=== PATIENT | male | born 1950 | race Caucasian/White ===

== ENCOUNTER 2021-12-20 14:00 | Inpatient (IN) | payer MEDICARE, OTHER ==
[~2021-12-20] VITALS: Ht 188 cm; Wt 77.1 kg
[2021-12-20] MEDS ORDERED: METO25TA20 PO (15:05)
[2021-12-20] MEDS ORDERED: ACET-868 PO ×2 (15:05)
[2021-12-20] MEDS ORDERED: NA P133E RC (15:05)
[2021-12-20] MEDS ORDERED: HONE15GE TP (15:05)
[2021-12-20] MEDS ORDERED: NEOM1OIN15 TP (15:05)
[2021-12-20] MEDS ORDERED: MULT-447 PO (15:05)
[2021-12-20] MEDS ORDERED: MAGN400O6 PO (15:05)
[2021-12-20] MEDS ORDERED: DOCU-141 PO (15:05)
[2021-12-20] MEDS ORDERED: ZINC50TA69 PO (15:05)
[2021-12-20] MEDS ORDERED: ACET-2605 PO (15:05)
[2021-12-20] MEDS ORDERED: POVI3780 TP (15:05)
[2021-12-20] MEDS ORDERED: BISA10SU11 RC (15:05)
[2021-12-20] MEDS ORDERED: SENN-261 PO (15:05)
--- NOTE | 2021-12-20 15:18 | NUR ---
MOVE SHEET SUBMITTED.
--- NOTE | 2021-12-20 15:19 | NUR ---
COVID SWAB DONE AND SENT TO LAB
--- NOTE | 2021-12-20 15:45 | NUR ---
PHLEB TECH AT BEDSIDE FOR BLOOD DRAW.
[2021-12-20 16:14] LABS: BASOPHILS % (AUTO) 0.5 % (0.0-2.0); EOSINOPHILS % (AUTO) 1.2 % (0.0-6.0); HEMATOCRIT 27 % (39-51); HEMOGLOBIN 8.4 g/dL (13.5-17.5); LYMPHOCYTES # (AUTO) 0.7 K/uL (0.8-4.8); LYMPHOCYTES % (AUTO) 10.9 % (20.0-44.0); MEAN CORPUSCULAR HGB CONC 31 g/dl (31.0-36.0); MEAN CORPUSCULAR VOLUME 85 fL (80-96); MONOCYTES # (AUTO) 0.6 K/uL (0.1-1.30); MONOCYTES % (AUTO) 10.6 % (2.0-12.0); NEUTROPHILS # (AUTO) 4.6 K/uL (1.8-8.9); NEUTROPHILS % (AUTO) 76.8 % (43.0-81.0); PLATELET COUNT (AUTO) 348 K/uL (150-450); RED BLOOD CELL COUNT(AUTO) 3.24 MIL/uL (4.5-6.0)
[2021-12-20 16:36] LABS: ALANINE AMINOTRANSFERASE 12 U/L (12-78); ALBUMIN 1.5 g/dL (3.4-5.0); ALKALINE PHOSPHATASE 88 U/L (46-116); ASPARTATE AMINOTRANSFERASE 18 U/L (15-37); BILIRUBIN,DIRECT 0.1 mg/dL (0.0-0.2); BILIRUBIN,TOTAL 0.1 mg/dL (0.2-1.0); CALCIUM, SERUM 8.2 mg/dL (8.5-10.1); CARBON DIOXIDE 37 mmol/L (21-32); CHLORIDE 99 mmol/L (98-107); CREATININE 0.8 mg/dL (0.6-1.3); GLUCOSE 101 mg/dL (74-106); POTASSIUM 4.4 mmol/L (3.5-5.1); SODIUM SERUM 136 mmol/L (136-145); TOTAL PROTEIN, SERUM 8.1 g/dL (6.4-8.2); UREA NITROGEN, BLOOD 13 mg/dL (7-18)
[2021-12-20 17:43] LABS: BAND % (MANUAL) 9 % (0.0-5.0); EOSINOPHILS % (MANUAL) 1 % (0-4); LYMPHOCYTES % (MANUAL) 7 % (16-48); MONOCYTES % (MANUAL) 4 % (0-11.0); NEUTROPHILS % (MANUAL) 79 (42-76)
--- NOTE | 2021-12-20 17:53 | NUR ---
[facility] CALLED MULTIGRAPHER PAGED.
--- NOTE | 2021-12-20 19:33 | NUR ---
BIBPA FOR C/O DISLODGED JUAN MANUEL DRAIN. PT AWAKE AND ALERT X4 BREATHING EVEN AND UNLABORED. ALL V/S WNL.
--- NOTE | 2021-12-20 19:51 | NUR ---
REPORT GIVEN TO BONNIE
--- NOTE | 2021-12-20 20:28 | NUR ---
PATIENT TRANSFERRED TO [facility]
[2021-12-20] MEDS ORDERED: ACETAMINOPHEN 325 MG TABLET PO PRN (20:30)
[2021-12-20] MEDS ORDERED: BACI/NEOM/POLY B OINT PKT 1 UDPKT PACKET TP SCH (20:30)
[2021-12-20] MEDS ORDERED: ONDANSETRON HCL/PF 4 MG/2 ML VIAL IVP PRN (20:30)
--- NOTE | 2021-12-20 20:50 | NUR ---
RN NOTES PT RECIEVED FROM ER VIA IRA IN RM 311-2,AAOX3, ROSANNA NASAL CANULA 2L,NO SIGN SOB/DISTRESS NOTED.NO COPLAINE OF PAIN/DISCOMFORT AT THIS TIME.IV ACCESS ON RD PICCLINE 17G,PATENT AND INTACT.V/S TAKEN AND RECORDED.PT REOREINT THE RM AND VERBALIZED UNDERSTANDING,CALL LIGHT WITHIN REACH,BED LOCKED AND LOW POSITION.CONTINUE TO MONITOR.
[2021-12-20 21:00] VITALS: BP 113/76
[2021-12-20] MEDS: SENNOSIDES 8.6 MG TABLET PO SCH (22:08)
[2021-12-20] MEDS ORDERED: METOPROLOL TARTRATE 25 MG TABLET ONE (22:13)
[2021-12-20] MEDS ORDERED: BACI/NEOM/POLY B OINT PKT 1 UDPKT PACKET ONE (22:13)
[2021-12-20] MEDS: METOPROLOL TARTRATE 25 MG TABLET PO SCH (22:21)
[2021-12-21] MEDS: IV NS 0.9% 1,000 ML IV PRN ×2 (01:35→17:59)
--- NOTE | 2021-12-21 04:25 | NUR ---
RN NOTES PT COMPLAINED OF GEN.BODY PAIN.PRN TYLENOL 650MG WAS GIVEN .PT SAID IS NOT GONNA WORK I NEED MORE STRONGER.I TEXTED DOC.CHELO SAAB WITH A NEW ORDER.NORCO 5-325MG Q4HR PRN.
[2021-12-21] MEDS: HYDROCODONE/APAP 5/325MG TABLET PO PRN (04:36)
--- NOTE | 2021-12-21 06:15 | NUR ---
RN CLOSING NOTES PT IN BED WATCHING TV AOX3.ROSANNA NASAL CANNULA 2L.NO SIGN SOB/DISTRESS NOTED.KEPT PT CLEANED AND COMFORTABLE.ALL DUE MEDS GIVEN ORDERS.ALL NEEDS ATTENDED ROSANNA WELL.IV ACCESS ON RD PICCLINE PATENT AND INTACK.RUNNING 0.9%NS @ 75ML/HR.CALL LIGHT WITHIN REACH.BED LOCKED AND LOW POSITION.ROC ENDORSED TO NEXT SHIFT.
[2021-12-21 06:37] LABS: BASOPHILS % (AUTO) 1.2 % (0.0-2.0); EOSINOPHILS % (AUTO) 3.8 % (0.0-6.0); HEMATOCRIT 24 % (39-51); HEMOGLOBIN 7.6 g/dL (13.5-17.5); LYMPHOCYTES # (AUTO) 0.9 K/uL (0.8-4.8); LYMPHOCYTES % (AUTO) 23.6 % (20.0-44.0); MEAN CORPUSCULAR HGB CONC 31 g/dl (31.0-36.0); MEAN CORPUSCULAR VOLUME 84 fL (80-96); MONOCYTES # (AUTO) 0.6 K/uL (0.1-1.30); MONOCYTES % (AUTO) 15.7 % (2.0-12.0); NEUTROPHILS # (AUTO) 2.1 K/uL (1.8-8.9); NEUTROPHILS % (AUTO) 55.7 % (43.0-81.0); PLATELET COUNT (AUTO) 361 K/uL (150-450); RED BLOOD CELL COUNT(AUTO) 2.92 MIL/uL (4.5-6.0); WHITE BLOOD COUNT (AUTO) 3.7 K/uL (4.3-11.0)
[2021-12-21 06:55] LABS: CALCIUM, SERUM 8.5 mg/dL (8.5-10.1); CARBON DIOXIDE 33 mmol/L (21-32); CHLORIDE 102 mmol/L (98-107); CREATININE 0.7 mg/dL (0.6-1.3); GLUCOSE 93 mg/dL (74-106); MAGNESIUM 1.8 mg/dL (1.8-2.4); PHOSPHORUS 3.5 mg/dL (2.5-4.9); POTASSIUM 3.9 mmol/L (3.5-5.1); SODIUM SERUM 138 mmol/L (136-145); UREA NITROGEN, BLOOD 13 mg/dL (7-18)
--- NOTE | 2021-12-21 07:26 | NUR ---
MS RN OPENING NOTES RECEIVED PT IN BED AWAKE WATCHING TV. A/O X3, ABLE TO MAKE NEEDS KNOWN. ON RA, TOLERATING WELL. NO SOB NOTED. NOT IN ANY SIGN OF RESPIRATORY DISTRESS. IV ACCESS IN RD PICCLINE INTACT AND PATENT. SAFETY MEASURES IN PLACE: BED IN LOWEST AND LOCKED POSITION, SIDE RAILS UP X3, BED ALARM ON, AND CALL LIGHT WITHIN REACH. WILL CONTINUE TO MONITOR PT.
[2021-12-21 08:00] VITALS: BP 96/73
[2021-12-21] MEDS ORDERED: ENOXAPARIN SODIUM 40 MG/0.4 ML DISP.SYRIN SQ SCH (08:00)
--- NOTE | 2021-12-21 08:35 | NUR ---
RN NOTE LOVENOX 4MG SQ NOT ADMINISTERED. PT'S HEMOGLOBIN DROPPED FROM 8.4 TO 7.6. MD AWARE AND TO MONITOR HEMOGLOBIN AT THIS TIME. Addendum: 12/22/21 at 0801 by JOSH RUIZ RN CORRECTION: LOVENOX 40MG SQ NOT ADMINISTERED.
[2021-12-21] MEDS: METOPROLOL TARTRATE 25 MG TABLET PO SCH ×3 (09:00→17:00)
[2021-12-21] MEDS: ZINC SULFATE 220 MG CAPSULE PO SCH (09:40)
[2021-12-21] MEDS: DOCUSATE SODIUM 100 MG CAPSULE PO SCH (09:40)
[2021-12-21] MEDS: MULTIVIT W/MINERALS 1 TAB TABLET PO SCH (09:41)
[2021-12-21] MEDS ORDERED: IOHEXOL-350 100 ML VIAL IV ONE (09:42)
[2021-12-21] MEDS ORDERED: IV NS 0.9% 500 ML IV ONE (09:45)
[2021-12-21] MEDS: NEOMY SULF/BACITRAC ZN/POLY 15 GM TUBE TP SCH ×2 (10:00→17:43)
[2021-12-21 10:24] LABS: EOSINOPHILS % (MANUAL) 4 % (0-4); LYMPHOCYTES % (MANUAL) 24 % (16-48); MONOCYTES % (MANUAL) 10 % (0-11.0); NEUTROPHILS % (MANUAL) 62 (42-76)
--- NOTE | 2021-12-21 11:06 | NUR ---
WOUND CARE CONSULT: PT OFF UNIT AT THIS TIME. REVIEWED CHART, NURSING DOCUMENTATION AND PHOTOS WHICH INDICATE WOUNDS PRESENT ON ADMISSION WELL VERY LONG TOENAILS. DR AVILA AND DR HOFF TO BE CONSULTED FOR SURGICAL AND DPM CONSULT REQUESTS. MD IN AGREEMENT WITH PLAN OF CARE. PT TO BE SEEN FOR SKIN ASSESSMENT PT CONDITION PERMITS.
--- NOTE | 2021-12-21 11:15 | NUR ---
RN NOTE RECEIVED A CALL FROM RADIOLOGIST REPORTING DUPLEX VENOUS RESULT OF POSITIVE DVT BILATERALLY TO BOTH LOWER EXT. DR. JACQUES MADE AWARE AND PER MD, HE WILL INCREASE LOVENOX TO FULL DOSE 80MG SQ AND TO ADMINISTER IT AND TO CONTINUE TO MONITOR HEMOGLOBIN.
[2021-12-21] MEDS: ENOXAPARIN SODIUM 80 MG/0.8 ML DISP.SYRIN SQ SCH ×2 (11:29→21:20)
--- NOTE | 2021-12-21 11:35 | NUR ---
RN NOTE RECEIVED AN ORDER FROM DR. JACQUES OF LOVENOX 80MG SQ EVERY 12HRS. LOVENOX 80MG SQ ADMINISTERED AND THE NEXT DOSE WILL BE AT 2100. NO ACTIVE BLEEDING NOTED. WILL CONTINUE TO MONITOR PT.
[2021-12-21 16:00] VITALS: BP 111/65
[2021-12-21 16:37] LABS: BILIRUBIN,URINE NEGATIVE (NEGATIVE); COLOR,URINE YELLOW (YELLOW); LEUKOCYTE ESTERASE ,URINE NEGATIVE (NEGATIVE); NITRITE, URINE NEGATIVE (NEGATIVE); PROTEIN,URINE NEGATIVE (NEGATIVE); UGLUCOSE NEGATIVE (NEGATIVE); UROBILINOGEN,URINE 0.2 EU/dL (0.2)
--- NOTE | 2021-12-21 18:59 | NUR ---
MS RN CLOSING NOTES PT IN BED AWAKE WATCHING TV. A/O X3, ABLE TO MAKE NEEDS KNOWN. ON RA, TOLERATING WELL. NO SOB NOTED. NOT IN ANY SIGN OF RESPIRATORY DISTRESS. IV ACCESS IN RD PICCLINE INTACT AND PATENT WITH NS INFUSING AT 75ML/HR. ALL NEEDS ATTENDED. KEPT CLEAN AND COMFORTABLE. KEPT BOTH LOWER EXTREMITIES ELEVATED. SAFETY MEASURES IN PLACE: BED IN LOWEST AND LOCKED POSITION, SIDE RAILS UP X3, BED ALARM ON, AND CALL LIGHT WITHIN REACH. WILL ENDORSE TO DIGITAL MARKETING OFFICER NURSE FOR FRANCIS.
--- NOTE | 2021-12-21 19:27 | NUR ---
MS RN OPENING NOTES RECEIVED PT IN BED AWAKE WATCHING TV. A/O X3,ON RM AIR ROSANNA WELL.NO SOB/DISTRESS NOTED.IV ACCESS IN RD PICCLINE INTACT AND PATENT. SAFETY MEASURES IN PLACE: BED IN LOWEST AND LOCKED POSITION, SIDE RAILS UP X3, BED ALARM ON, AND CALL LIGHT WITHIN REACH. WILL CONTINUE TO MONITOR PT.
[2021-12-21 20:00] VITALS: BP 108/85
[2021-12-21] MEDS: SENNOSIDES 8.6 MG TABLET PO SCH (21:19)
--- NOTE | 2021-12-22 06:22 | NUR ---
RN CLOSING NOTES PT IN BED SLEEPING BUT EASY TO AROUSED.NO SIGN SOB/DISTRESS NOTED.KEPT PT CLEANED AND COMFORTABLE.ALL DUE MEDS GIVEN ORDERS.ALL NEEDS ATTENDED ROSANNA WELL.IV ACCESS ON RD PICCLINE PATENT AND INTACK.RUNNING 0.9%NS @ 75ML/HR.CALL LIGHT WITHIN REACH.BED LOCKED AND LOW POSITION.ROC ENDORSED TO NEXT SHIFT.
[2021-12-22 06:34] LABS: BASOPHILS # (AUTO) 0.1 K/uL (0.0-0.2); BASOPHILS % (AUTO) 1.9 % (0.0-2.0); EOSINOPHILS % (AUTO) 5.1 % (0.0-6.0); HEMATOCRIT 24 % (39-51); HEMOGLOBIN 7.6 g/dL (13.5-17.5); LYMPHOCYTES % (AUTO) 22.2 % (20.0-44.0); MEAN CORPUSCULAR HGB CONC 32 g/dl (31.0-36.0); MEAN CORPUSCULAR VOLUME 84 fL (80-96); MONOCYTES # (AUTO) 0.5 K/uL (0.1-1.30); MONOCYTES % (AUTO) 11.5 % (2.0-12.0); NEUTROPHILS # (AUTO) 2.7 K/uL (1.8-8.9); NEUTROPHILS % (AUTO) 59.3 % (43.0-81.0); PLATELET COUNT (AUTO) 395 K/uL (150-450); RED BLOOD CELL COUNT(AUTO) 2.85 MIL/uL (4.5-6.0); WHITE BLOOD COUNT (AUTO) 4.5 K/uL (4.3-11.0)
[2021-12-22 07:10] LABS: CALCIUM, SERUM 8.1 mg/dL (8.5-10.1); CARBON DIOXIDE 32 mmol/L (21-32); CHLORIDE 102 mmol/L (98-107); CREATININE 0.7 mg/dL (0.6-1.3); GLUCOSE 84 mg/dL (74-106); MAGNESIUM 1.9 mg/dL (1.8-2.4); PHOSPHORUS 3.9 mg/dL (2.5-4.9); POTASSIUM 3.8 mmol/L (3.5-5.1); SODIUM SERUM 138 mmol/L (136-145); UREA NITROGEN, BLOOD 11 mg/dL (7-18)
--- NOTE | 2021-12-22 07:30 | NUR ---
RN MS OPENING NOTE PATIENT RECEIVED RESTING IN BED. A/OX3. NO S/SX OF RESPIRATORY DISTRESS OR C/O PAIN AT TIME OF ASSESSMENT. PICC-LINE IV ACCESS TO RD INTACT, PATENT AND FLUSHING WELL. NS RUNNING @ 75ML/HR. SAFETY MEASURES IN PLACE WITH BED IN LOWEST POSITION AND LOCKED. SIDERAIL UP X2. CALL LIGHT WITHIN REACH. WILL CONT TO MONITOR.
[2021-12-22 08:00] VITALS: BP 116/82
[2021-12-22] MEDS: DOCUSATE SODIUM 100 MG CAPSULE PO SCH (08:35)
[2021-12-22] MEDS: MULTIVIT W/MINERALS 1 TAB TABLET PO SCH (08:35)
[2021-12-22] MEDS: ZINC SULFATE 220 MG CAPSULE PO SCH (08:35)
[2021-12-22] MEDS: METOPROLOL TARTRATE 25 MG TABLET PO SCH ×3 (08:36→18:06)
[2021-12-22] MEDS: ENOXAPARIN SODIUM 80 MG/0.8 ML DISP.SYRIN SQ SCH ×2 (08:44→21:52)
[2021-12-22] MEDS: NEOMY SULF/BACITRAC ZN/POLY 15 GM TUBE TP SCH ×2 (09:04→18:06)
[2021-12-22 10:39] LABS: BASOPHILS % (MANUAL) 0 % (0.0-2.0); EOSINOPHILS % (MANUAL) 5 % (0-4); LYMPHOCYTES % (MANUAL) 20 % (16-48); MONOCYTES % (MANUAL) 7 % (0-11.0); NEUTROPHILS % (MANUAL) 68 (42-76)
--- NOTE | 2021-12-22 12:20 | NUR ---
WOUND CARE CONSULT: LIMITED SKIN ASSESSMENT DUE TO PT REFUSAL TO TURN FOR FULL ASSESSMENT OF BACK AND BUTTOCKS. PT PRESENTS WITH OPEN AREA TO ABDOMEN WITH SCANT AMOUNT OF PURULENT DRAINAGE AND RT THIGH WOUND WITH MODERATE AMOUNT OF SEROSANGUINOUS DRAINAGE IN OSTOMY POUCH DEVICE. WOUNDS WERE NOTED TO BE PRESENT ON ADMISSION. SURGICAL TEAM ON CASE. DISCUSSED SKIN PROTECTION WITH NURSING STAFF. MD IN AGREEMENT WITH PLAN OF CARE.
[2021-12-22 16:00] VITALS: BP 104/66
[2021-12-22] MEDS: IV NS 0.9% 1,000 ML IV PRN (18:15)
--- NOTE | 2021-12-22 18:19 | NUR ---
RN CLOSING NOTE PATIENT A/O X3. REMAINS IN BED FOR DURATION OF SHIFT. NO S/SX OF PAIN OR DISTRESS OBSERVED OR REPORTED. WOUND CULTURE TO RIGHT THIGH WOUND COMPLETED AND SENT TO LAB. AWAITING RESULTS. IV PICC LINE ACCESS TO LEFT UPPER ARM REMAINS INTACT AND PATENT. NS RUNNING CONTINUOUSLY @ 75ML/HR. POSITIVE FOR DVT TO BLE. RECEIVED SCHEDULED DOSE OF LOVENOX ON SHIFT. TOLERATED WELL. AWAITING MEDICAL RECORDS FROM RECENT STAY @ [facility]. WILL ENDORSE TO ONCOMING NURSE. SAFETY MEASURES IN PLACE WITH BED LOCKED AND IN LOWEST POSITION. SIDERAIL UP X2, CALL LIGHT WITH IN REACH. WILL CONTINUE TO MONITOR.
[2021-12-22 20:00] VITALS: BP 104/63
--- NOTE | 2021-12-22 20:05 | NUR ---
MS RN OPENING NOTE RECEIVED PATIENT IN BED A/OX3. NO S/S OF APPARENT DISTRESS IN 2LPM OF O2 VIA NC. DENIES PAIN NOR ANY DISCOMFORT AT THIS TIME. IV NS RUNNING @75MLS HR. OSTOMY NOTED IN L. LEG AND DRESSING NOTED IN L. ABDOMINAL WALL, DRY AND INTACT. RE-ORIENTED AND ENCOURAGED WITH THE USE OF CALL LIGHT. SAFETY IN PLACE. WILL CONTINUE WITH PLAN OF CARE FOR PATIENT.
[2021-12-22] MEDS: SENNOSIDES 8.6 MG TABLET PO SCH (21:53)
--- NOTE | 2021-12-23 07:32 | NUR ---
MS RN CLOSING NOTE NEEDS ATTENDED. REPORT GIVEN TO ELIGIO MATA FOR CONTINUITY OF CARE.
--- NOTE | 2021-12-23 07:57 | NUR ---
RN OPENING NOTE PATIENT RECEIVED IN BED, AO X 3, ABLE TO RESPONDS ALL STIMULI. IN NO ACUTE DISTRESS NOTED. RESPIRATORY EVEN AND UNLABORED ON OXYGEN AT 2 Ls VIA NC. SKIN IS WARM TO TOUCH, KEEP CLEAN/DRY. KEPT ELEVATED HOB FOR ENSURE AIRWAY AND ASPIRATION PRECAUTION, ALSO LOWEST POSITION OF THE BED, S/R UP X 3, BED ALARM IS ON AT ALL THE TIMES. ALL SAFETY PRECAUTION APPLIED. CALL LIGHT WITHIN REACH, WILL CONTINUE TO MONITOR.
[2021-12-23 08:00] VITALS: BP 109/68
[2021-12-23 08:10] LABS: EOSINOPHILS % (AUTO) 6.6 % (0.0-6.0); HEMATOCRIT 25 % (39-51); HEMOGLOBIN 7.8 g/dL (13.5-17.5); LYMPHOCYTES # (AUTO) 0.9 K/uL (0.8-4.8); LYMPHOCYTES % (AUTO) 20.5 % (20.0-44.0); MEAN CORPUSCULAR HGB CONC 31 g/dl (31.0-36.0); MEAN CORPUSCULAR VOLUME 86 fL (80-96); MONOCYTES # (AUTO) 0.5 K/uL (0.1-1.30); MONOCYTES % (AUTO) 10.7 % (2.0-12.0); NEUTROPHILS # (AUTO) 2.7 K/uL (1.8-8.9); NEUTROPHILS % (AUTO) 61.2 % (43.0-81.0); PLATELET COUNT (AUTO) 416 K/uL (150-450); RED BLOOD CELL COUNT(AUTO) 2.93 MIL/uL (4.5-6.0); WHITE BLOOD COUNT (AUTO) 4.4 K/uL (4.3-11.0)
[2021-12-23 08:28] LABS: CALCIUM, SERUM 8.1 mg/dL (8.5-10.1); CARBON DIOXIDE 34 mmol/L (21-32); CHLORIDE 104 mmol/L (98-107); CREATININE 0.7 mg/dL (0.6-1.3); GLUCOSE 79 mg/dL (74-106); PHOSPHORUS 3.7 mg/dL (2.5-4.9); POTASSIUM 3.7 mmol/L (3.5-5.1); SODIUM SERUM 141 mmol/L (136-145); UREA NITROGEN, BLOOD 11 mg/dL (7-18)
[2021-12-23] MEDS: DOCUSATE SODIUM 100 MG CAPSULE PO SCH (08:49)
[2021-12-23] MEDS: MULTIVIT W/MINERALS 1 TAB TABLET PO SCH (08:50)
[2021-12-23] MEDS: METOPROLOL TARTRATE 25 MG TABLET PO SCH ×3 (08:50→16:37)
[2021-12-23] MEDS: ZINC SULFATE 220 MG CAPSULE PO SCH (08:50)
[2021-12-23] MEDS: NEOMY SULF/BACITRAC ZN/POLY 15 GM TUBE TP SCH ×2 (08:53→16:43)
[2021-12-23] MEDS: ENOXAPARIN SODIUM 80 MG/0.8 ML DISP.SYRIN SQ SCH ×2 (08:56→21:31)
[2021-12-23] MEDS: IV NS 0.9% 1,000 ML IV PRN ×2 (09:42→22:15)
[2021-12-23 10:16] LABS: BAND % (MANUAL) 2 % (0.0-5.0); EOSINOPHILS % (MANUAL) 7 % (0-4); LYMPHOCYTES % (MANUAL) 25 % (16-48); MONOCYTES % (MANUAL) 10 % (0-11.0); NEUTROPHILS % (MANUAL) 56 (42-76)
[2021-12-23 12:36] LABS: THYROID STIMULATING HORMONE 5.887 uIU/mL (0.358-3.74)
--- NOTE | 2021-12-23 13:45 | NUR ---
PATIENT BP-89/62, HR-93, WILL HOLD METOPROLOL AT THIS TIME.
--- NOTE | 2021-12-23 15:53 | NUR ---
PATIENT REFUSED CT ABDOMEN/PELVIS WITH CONTRAST, INFORMED HAZARDOUS WASTE REMOVER/VANDANA AND DR. BARLOW.
[2021-12-23 16:00] VITALS: BP 124/71
[2021-12-23] MEDS: HYDROCODONE/APAP 5/325MG TABLET PO PRN (16:38)
--- NOTE | 2021-12-23 18:47 | NUR ---
RN CLOSING NOTE PATIENT IN BED RESTING. IN NO ACUTE DISTRESS NOTED. RESPIRATORY EVEN AND UNLABORED ON OXYGEN AT 2Ls VIA NC. SKIN IS WARM TO TOUCH, KEEP CLEAN/DRY. PATIENT HAVE OSTOMY ON RIGHT THIGH TO DRAIN OBSESS. PATIENT REFUSED CT ABDOMEN PELVIS WITH CONTRAST AND PHYSICIANS MADE AWARE. KEPT ELEVATED HOB FOR ENSURE AIRWAY AND ASPIRATION PRECAUTION, BED IN LOWEST POSITION AND LOCK. BED ALARM IS ON AT ALL THE TIMES. ALL SAFETY MEASURED IN PLACED. CALL LIGHT WITHIN REACH, WILL ENDORSED TO NEXT SHIFT.
[2021-12-23 20:00] VITALS: BP 101/71
[2021-12-23] MEDS: SENNOSIDES 8.6 MG TABLET PO SCH (21:31)
--- NOTE | 2021-12-23 23:00 | NUR ---
NEW ORDER 2109 Patient in bed, seen by Keagan Bond with new orders given. Will start on IV Zosyn. Procedure explained to patient, urine catheterized for specimen, patient verbalized understanding.
[2021-12-23] MEDS ORDERED: PIPERACILLIN /TAZOBACTAM 3.375 G VIAL IV ONE (23:22)
[2021-12-23] MEDS: PIPERACILLIN /TAZOBACTAM 3.375 G in IV D5W 50 ML IV SCH (23:47)
[2021-12-24] MEDS ORDERED: Z GUARD REMEDY 4 OZ OINT TP PRN
[2021-12-24] MEDS: HYDROCODONE/APAP 5/325MG TABLET PO PRN ×2 (00:08→09:56)
[2021-12-24] MEDS ORDERED: PIPERACILLIN /TAZOBACTAM 3.375 G VIAL IV ONE (05:15)
[2021-12-24] MEDS: PIPERACILLIN /TAZOBACTAM 3.375 G in IV D5W 50 ML IV SCH (05:36)
--- NOTE | 2021-12-24 06:05 | NUR ---
END OF SHIFT REPORT Patient is A/O x3. Tolerating room air. RD PICC line patent, IVF infusing. On IV abx. Afebrile during the shift. Right thigh drainage purulent, pain managed with [place]. Urine specimen send to lab for cx. Turned and repositioned, wound consult. Awaiting Surgical eval. Will endorse to oncoming RN.
--- NOTE | 2021-12-24 07:00 | NUR ---
MS RN OPENING NOTE PATIENT LAYING IN BED, A/O X 3, ABLE TO MAKE NEEDS KNOWN. TOLERATING WELL ON 2 LPM O2 VIA CANNULA WITH NO S/S RESPIRATORY DISTRESS. NO COMPLAINTS OF PAIN OR DISCOMFORT AT THIS TIME. OSTOMY PRESENT ON RIGHT THIGH ABSCESS DRAINING CLEAR FLUID. SAFETY MEASURES IN PLACE: BED IN LOWEST LOCKED POSITION, HOB ELEVATED FOR ASPIRATION PRECAUTION, SIDE RAILS UP X 2, CALL LIGHT WITHIN REACH. WILL CONTINUE TO MONITOR.
[2021-12-24 07:19] LABS: BASOPHILS # (AUTO) 0.1 K/uL (0.0-0.2); BASOPHILS % (AUTO) 1.2 % (0.0-2.0); EOSINOPHILS % (AUTO) 7.5 % (0.0-6.0); HEMATOCRIT 24 % (39-51); HEMOGLOBIN 7.4 g/dL (13.5-17.5); LYMPHOCYTES # (AUTO) 1.1 K/uL (0.8-4.8); LYMPHOCYTES % (AUTO) 20.5 % (20.0-44.0); MEAN CORPUSCULAR HGB CONC 30 g/dl (31.0-36.0); MEAN CORPUSCULAR VOLUME 86 fL (80-96); MONOCYTES # (AUTO) 0.5 K/uL (0.1-1.30); MONOCYTES % (AUTO) 9.6 % (2.0-12.0); NEUTROPHILS # (AUTO) 3.3 K/uL (1.8-8.9); NEUTROPHILS % (AUTO) 61.2 % (43.0-81.0); PLATELET COUNT (AUTO) 431 K/uL (150-450); RED BLOOD CELL COUNT(AUTO) 2.82 MIL/uL (4.5-6.0); WHITE BLOOD COUNT (AUTO) 5.5 K/uL (4.3-11.0)
[2021-12-24 07:48] LABS: CALCIUM, SERUM 8.3 mg/dL (8.5-10.1); CREATININE 0.7 mg/dL (0.6-1.3); MAGNESIUM 1.8 mg/dL (1.8-2.4); PHOSPHORUS 3.6 mg/dL (2.5-4.9); POTASSIUM 3.7 mmol/L (3.5-5.1)
[2021-12-24 08:00] VITALS: BP 105/55
[2021-12-24 08:07] LABS: IMMUNOGLOBULIN A, SERUM 723 mg/dL (61-437); IMMUNOGLOBULIN G, SERUM 2294 mg/dL (603-1613); IMMUNOGLOBULIN M, SERUM 70 mg/dL (15-143)
[2021-12-24] MEDS: METOPROLOL TARTRATE 25 MG TABLET PO SCH ×3 (09:00→16:33)
[2021-12-24] MEDS: MULTIVIT W/MINERALS 1 TAB TABLET PO SCH (09:42)
[2021-12-24] MEDS: ZINC SULFATE 220 MG CAPSULE PO SCH (09:42)
[2021-12-24] MEDS: DOCUSATE SODIUM 100 MG CAPSULE PO SCH (09:42)
[2021-12-24] MEDS: ENOXAPARIN SODIUM 80 MG/0.8 ML DISP.SYRIN SQ SCH ×2 (09:44→21:00)
[2021-12-24] MEDS: NEOMY SULF/BACITRAC ZN/POLY 15 GM TUBE TP SCH ×2 (09:44→16:34)
[2021-12-24] MEDS ORDERED: LORAZEPAM INJ 2 MG/ML VIAL IV PRN (11:00)
[2021-12-24] MEDS ORDERED: PIPERACILLIN /TAZOBACTAM 3.375 G in IV D5W 50 ML IV SCH (12:00)
[2021-12-24] MEDS: PIPERACILLIN /TAZOBACTAM 3.375 G in IV D5W 100 ML IV SCH ×2 (12:36→21:04)
[2021-12-24] MEDS ORDERED: IV NS 0.9% 250 ML IV ONE (13:35)
[2021-12-24] MEDS ORDERED: IOHEXOL-300 100 ML VIAL IV ONE (13:35)
[2021-12-24] MEDS ORDERED: VANCOMYCIN 1.25 GM in IV D5W 250 ML IV SCH (14:00)
[2021-12-24 16:00] VITALS: BP 101/60
[2021-12-24] MEDS: VANCOMYCIN 1.25 GM in IV D5W 250 ML IV SCH (16:41)
--- NOTE | 2021-12-24 19:00 | NUR ---
MS RN CLOSING NOTE PATIENT LAYING IN BED, A/O X 3, ABLE TO MAKE NEEDS KNOWN. TOLERATING WELL ON 2 LPM O2 VIA CANNULA WITH NO S/S RESPIRATORY DISTRESS. NO COMPLAINTS OF PAIN OR DISCOMFORT AT THIS TIME. OSTOMY PRESENT ON RIGHT THIGH ABSCESS DRAINING CLEAR FLUID INTO COLOSTOMY BAG. SAFETY MEASURES IN PLACE: BED IN LOWEST LOCKED POSITION, HOB ELEVATED FOR ASPIRATION PRECAUTION, SIDE RAILS UP X 2, CALL LIGHT WITHIN REACH. PATIENT REFUSED TURNING DURING SHIFT. ALL NEEDS MET. WILL ENDORSE TO MEDICAL BILLING AND CODING SPECIALIST FOR FRANCIS.
[2021-12-24 20:00] VITALS: BP 97/68
--- NOTE | 2021-12-24 20:12 | NUR ---
MS RN OPENING NOTE PATIENT AWAKE IN BED WATCHING TV, ALERT/ORIENTED X 3, PT ABLE TO MAKE NEEDS KNOWN. PT STABLE ON RA, NO S/S OF DISTRESS OR SOB NOTED, BREATHING EVEN AND UNLABORED. RD PICC LINE INFUSING VANCO @ 125 ML/HR. RIGHT THIGH ABSCESS DRAINING TO COLOSTOMY BAG, EMPTIED 100 ML OF SEROSANGUINEOUS PURULENT DRAINAGE. SAFETY MEASURES IN PLACE: CALL LIGHT WITHIN REACH, SIDE RAILS UP X 2, BED LOCKED IN LOWEST POSITION, BED ALARM ON. WILL CONTINUE TO MONITOR PATIENT
--- NOTE | 2021-12-24 20:54 | NUR ---
MS RN NOTE PATIENT HAS SCHEDULED LOVENOX 80 MG SQ, HOWEVER HGB 7.4, HCT 24, PLATELETS 431. CONTACTED INFORMATION BROKER LUZ MARIA HART TO ADVISE WHETHER TO ADMINISTER OR HOLD, PER LUZ MARIA HART HOLD LOVENOX
[2021-12-24] MEDS: SENNOSIDES 8.6 MG TABLET PO SCH (21:04)
--- NOTE | 2021-12-25 04:30 | NUR ---
MS RN NOTE IV VANCO AND ZOSYN BOTH SCHEDULED FOR 5 AM, HOWEVER VANCO INFUSES FOR 2 HOURS AND ZOSYN FOR 4 HOURS. CALLED PHARMACY TO DETERMINE IF COMPATIBLE TO RUN AT THE SAME TIME, PER PHARMACIST NOT COMPATIBLE. PER PHARMACIST WILL CHANGE DOSE TIME FOR ZOSYN
[2021-12-25] MEDS: VANCOMYCIN 1.25 GM in IV D5W 250 ML IV SCH ×2 (04:41→17:15)
[2021-12-25 06:19] LABS: BASOPHILS # (AUTO) 0.1 K/uL (0.0-0.2); BASOPHILS % (AUTO) 1.1 % (0.0-2.0); EOSINOPHILS % (AUTO) 6.6 % (0.0-6.0); HEMATOCRIT 23 % (39-51); LYMPHOCYTES # (AUTO) 0.7 K/uL (0.8-4.8); LYMPHOCYTES % (AUTO) 12.2 % (20.0-44.0); MEAN CORPUSCULAR HGB CONC 31 g/dl (31.0-36.0); MEAN CORPUSCULAR VOLUME 88 fL (80-96); MONOCYTES # (AUTO) 0.5 K/uL (0.1-1.30); MONOCYTES % (AUTO) 8.5 % (2.0-12.0); NEUTROPHILS # (AUTO) 4.1 K/uL (1.8-8.9); NEUTROPHILS % (AUTO) 71.6 % (43.0-81.0); PLATELET COUNT (AUTO) 407 K/uL (150-450); WHITE BLOOD COUNT (AUTO) 5.8 K/uL (4.3-11.0)
--- NOTE | 2021-12-25 06:54 | NUR ---
MS RN CLOSING NOTE PATIENT SLEEPING, ALERT/ORIENTED X 3 THROUGHOUT SHIFT, PT ABLE TO MAKE NEEDS KNOWN. PT STABLE ON RA, NO S/S OF DISTRESS OR SOB NOTED, BREATHING EVEN AND UNLABORED. RD PICC LINE INFUSING NS @ 75 ML/HR. RIGHT THIGH ABSCESS DRAINING TO COLOSTOMY BAG, EMPTIED 50 ML OF SEROSANGUINEOUS DRAINAGE. NO SIGNIFICANT CHANGES THROUGHOUT SHIFT. MEDICATIONS GIVEN ORDERED, PT NEEDS MET THROUGHOUT SHIFT. SAFETY MEASURES IN PLACE: CALL LIGHT WITHIN REACH, SIDE RAILS UP X 2, BED LOCKED IN LOWEST POSITION, BED ALARM ON. WILL ENDORSE TO DAYSHIFT NURSE FOR CONTINUATION OF CARE
[2021-12-25] MEDS ORDERED: PIPERACILLIN /TAZOBACTAM 3.375 G in IV D5W 100 ML IV SCH (07:00)
--- NOTE | 2021-12-25 07:00 | NUR ---
MS RN OPENING NOTES PATIENT LAYING IN BED, A/O X 3, ABLE TO MAKE NEEDS KNOWN. TOLERATING WELL ON ROOM AIR WITH NO S/S RESPIRATORY DISTRESS. NO COMPLAINTS OF PAIN OR DISCOMFORT AT THIS TIME. R THIGH ABSCESS DRAINING TO COLOSTOMY BAG. RD PICC LINE CLEAN, INTACT, AND INFUSING NS @ 75 ML/HR. SAFETY MEASURES IN PLACE: BED IN LOWEST LOCKED POSITION, SIDE RAILS UP X 2, CALL LIGHT WITHIN REACH. WILL CONTINUE TO MONITOR.
[2021-12-25 07:03] LABS: CALCIUM, SERUM 8.2 mg/dL (8.5-10.1); CREATININE 0.7 mg/dL (0.6-1.3); MAGNESIUM 1.8 mg/dL (1.8-2.4); PHOSPHORUS 3.4 mg/dL (2.5-4.9); POTASSIUM 3.6 mmol/L (3.5-5.1); PROSTATE SPECIFIC ANTIGEN SCR 0.6 ng/mL (0.00-4.00)
[2021-12-25 08:06] LABS: *SPE A/G RATIO 0.4 (0.7-1.7); *SPE ALPHA-1-GLOBULIN 0.3 g/dL (0.0-0.4); *SPE ALPHA-2-GLOBULIN 0.8 g/dL (0.4-1.0); *SPE BETA GLOBULIN 0.9 g/dL (0.7-1.3); *SPE M-SPIKE Not Observed g/dL (Not Observed)
[2021-12-25 08:21] VITALS: BP 103/67
[2021-12-25] MEDS: ENOXAPARIN SODIUM 80 MG/0.8 ML DISP.SYRIN SQ SCH ×2 (09:00→21:15)
[2021-12-25] MEDS: METOPROLOL TARTRATE 25 MG TABLET PO SCH ×4 (09:00→17:16)
[2021-12-25] MEDS: DOCUSATE SODIUM 100 MG CAPSULE PO SCH (09:01)
[2021-12-25] MEDS: ZINC SULFATE 220 MG CAPSULE PO SCH (09:01)
[2021-12-25] MEDS: MULTIVIT W/MINERALS 1 TAB TABLET PO SCH (09:01)
[2021-12-25] MEDS: NEOMY SULF/BACITRAC ZN/POLY 15 GM TUBE TP SCH ×2 (09:02→17:16)
[2021-12-25] MEDS: HYDROCODONE/APAP 5/325MG TABLET PO PRN ×2 (09:09→19:34)
--- NOTE | 2021-12-25 09:17 | NUR ---
WOUND CARE CONSULT: PT SEEN FOR SACRAL WOUND WHICH WAS PRESENT ON ADMISSION. PT WAS PREVIOUSLY UNCOOPERATIVE WITH TURNING FOR SKIN ASSESSMENT. STAGE 3 SACRAL WOUND NOTED WITH SCARRING TO PERIWOUND EDGES. RECOMMENDATIONS MADE FOR SKIN PROTECTION AND DISCUSSED WITH NURSING STAFF AND SURGICAL P.A. MD IN AGREEMENT WITH PLAN OF CARE. MD IN AGREEMENT WITH PLAN OF CARE.
[2021-12-25 09:41] LABS: EOSINOPHILS % (MANUAL) 7 % (0-4); LYMPHOCYTES % (MANUAL) 12 % (16-48); MONOCYTES % (MANUAL) 8 % (0-11.0); NEUTROPHILS % (MANUAL) 73 (42-76)
[2021-12-25] MEDS ORDERED: HYDROGEL DRESSING 90 GM TUBE TP PRN (10:00)
[2021-12-25] MEDS: HYDROGEL DRESSING 90 GM TUBE TP SCH (11:05)
[2021-12-25 16:42] VITALS: BP 112/68
--- NOTE | 2021-12-25 19:29 | NUR ---
MS RN OPENING NOTES: [id number] PATIENT AWAKE IN BED, BED IN LOW POSITION CALL LIGHTS WITHIN REACH, NO COMPLAIN OF PAIN AND DISCOMFORT AT THIS TIME ON ROOM AIR SATURATING WELL, WITH IV LINE AT HDZ PICC LINE WITH ONGOING NSS@75ML/HR INFUSING WELL, PATIENT WITH RIGHT THIGH COLOSTOMY DRAINAGE, PATIENT KEPT CLEAN AND DRY ALL NEEDS MET WILL CONTINUE TO MONITOR.
[2021-12-25 20:00] VITALS: BP 94/63
[2021-12-25 20:29] VITALS: BP 94/63
[2021-12-25] MEDS: SENNOSIDES 8.6 MG TABLET PO SCH (21:14)
[2021-12-25] MEDS: IV NS 0.9% 1,000 ML IV PRN (21:14)
[2021-12-26] MEDS: VANCOMYCIN 1.25 GM in IV D5W 250 ML IV SCH (05:00)
--- NOTE | 2021-12-26 05:41 | NUR ---
RN NOTES: VANCOMYCIN 1.25MG NOT GIVEN; VANCOMYCIN TROUGH LEVEL-30
--- NOTE | 2021-12-26 06:45 | NUR ---
RN NOTES: PATIENT REFUSED TO BE CHANGE AND CHANGE OF DRESSING AND TO BE CLEAN HE SAID HE WANTED TO DO IT AFTER BREAKFAST, TOLD HIM THAT THE SHEETS IS WET AND NEEDS TO BE CHANGED BUT PATIENT KEPT ON REFUSING, PATIENT ALLOW US TO DRAIN THE COLOSTOMY DRAINAGE AT RT THIGH WITH 50CC OUTPUT,
[2021-12-26 07:14] LABS: BASOPHILS # (AUTO) 0.1 K/uL (0.0-0.2); BASOPHILS % (AUTO) 1.5 % (0.0-2.0); EOSINOPHILS % (AUTO) 8.4 % (0.0-6.0); HEMATOCRIT 23 % (39-51); HEMOGLOBIN 7.1 g/dL (13.5-17.5); LYMPHOCYTES # (AUTO) 0.9 K/uL (0.8-4.8); LYMPHOCYTES % (AUTO) 18.5 % (20.0-44.0); MEAN CORPUSCULAR HGB CONC 31 g/dl (31.0-36.0); MEAN CORPUSCULAR VOLUME 86 fL (80-96); MONOCYTES # (AUTO) 0.6 K/uL (0.1-1.30); MONOCYTES % (AUTO) 10.8 % (2.0-12.0); NEUTROPHILS # (AUTO) 3.1 K/uL (1.8-8.9); NEUTROPHILS % (AUTO) 60.8 % (43.0-81.0); PLATELET COUNT (AUTO) 430 K/uL (150-450); WHITE BLOOD COUNT (AUTO) 5.1 K/uL (4.3-11.0)
--- NOTE | 2021-12-26 07:30 | NUR ---
ms rn received on bed, awake,alert,oriented x4,not in any form of distress, respirations even and unlabored,no sob noted, lungs are diminished,abdomen soft,positive bowel sounds,denies pain at this time, all needs attended.
[2021-12-26 07:34] LABS: CREATININE 0.6 mg/dL (0.6-1.3); MAGNESIUM 1.8 mg/dL (1.8-2.4); PHOSPHORUS 3.4 mg/dL (2.5-4.9); POTASSIUM 3.5 mmol/L (3.5-5.1)
[2021-12-26 08:02] VITALS: BP 114/55
[2021-12-26] MEDS: MULTIVIT W/MINERALS 1 TAB TABLET PO SCH (08:59)
[2021-12-26] MEDS: DOCUSATE SODIUM 100 MG CAPSULE PO SCH (08:59)
[2021-12-26] MEDS: ZINC SULFATE 220 MG CAPSULE PO SCH (08:59)
[2021-12-26] MEDS: ENOXAPARIN SODIUM 80 MG/0.8 ML DISP.SYRIN SQ SCH ×2 (09:00→21:40)
[2021-12-26] MEDS: HYDROGEL DRESSING 90 GM TUBE TP SCH (09:00)
[2021-12-26] MEDS: METOPROLOL TARTRATE 25 MG TABLET PO SCH ×3 (09:00→17:29)
--- NOTE | 2021-12-26 09:00 | NUR ---
ms frias breakfast served,due meds given,tolerated well.
[2021-12-26] MEDS: HYDROCODONE/APAP 5/325MG TABLET PO PRN ×2 (09:17→18:47)
--- NOTE | 2021-12-26 15:00 | NUR ---
ms rn on bed, no distress noted.
[2021-12-26 16:00] VITALS: BP 102/59
[2021-12-26 16:02] VITALS: BP 102/59
[2021-12-26] MEDS: NEOMY SULF/BACITRAC ZN/POLY 15 GM TUBE TP SCH ×2 (16:11→17:29)
[2021-12-26] MEDS ORDERED: VANCOMYCIN HCL 0.75 GM in IV D5W 250 ML IV SCH (18:00)
[2021-12-26] MEDS: IV NS 0.9% 1,000 ML IV PRN (18:51)
--- NOTE | 2021-12-26 19:00 | NUR ---
ms rn on bed, no distress noted,all needs attended.
--- NOTE | 2021-12-26 19:15 | NUR ---
MS RN OPENING NOTES: RECEIVED PATIENT IN BED, AWAKE, A/O X4. NO S/S OF DISTRESS NOTED. NO COMPLAIN OF PAIN. CALL LIGHT WITHIN REACH. BED ALARM ON. BED IN LOWEST AND LOCKED POSITION. WITH URINAL AT THE BEDSIDE. WITH RIGHT THIGH COLOSTOMY BAG INTACT, ON THE WOUND WITH SEROSANGUINOUS OUTPUT. WITH MID ABDOMINAL SCAR, DRIED, NO DRAINAGE NOTED.
[2021-12-26 20:00] VITALS: BP 91/55
[2021-12-26] MEDS: VANCOMYCIN HCL 0.75 GM in IV D5W 250 ML IV SCH (21:38)
[2021-12-26] MEDS: SENNOSIDES 8.6 MG TABLET PO SCH (21:39)
[2021-12-27] MEDS: IV NS 0.9% 1,000 ML IV PRN ×2 (01:30→16:40)
[2021-12-27] MEDS: HYDROCODONE/APAP 5/325MG TABLET PO PRN ×2 (06:19→20:37)
--- NOTE | 2021-12-27 07:07 | NUR ---
MS RN OPENING NOTES RECEIVED PATIENT SLEEPING IN BED, ON ROOM AIR NO S/S OF RESPIRATORY DISTRESS OR DISCOMFORT. PATIENT IS A/O x3-4. IV ACCESS RD PICC RUNNING NS 75 ML/HR. INTACT AND PATENT. NO S/S OF CARDIAC DISTRESS OR DISCOMFORT. SKIN ISSUES: SACRAL WOUND DRESSING IN PLACE, NO S/S OF DRAINAGE OR INFECTION. USES URINAL AND BED FAGAN. SAFETY MEASURES IN PLACE: BED IN LOWEST POSITION AND LOCKED, SIDE RAILS UP x2, CALL LIGHT WITHIN REACH, BED ALARM ON. WILL CONTINUE TO MONITOR.
[2021-12-27 08:00] VITALS: BP 98/71
[2021-12-27 08:17] LABS: BASOPHILS % (AUTO) 0.8 % (0.0-2.0); EOSINOPHILS % (AUTO) 8.5 % (0.0-6.0); HEMATOCRIT 25 % (39-51); HEMOGLOBIN 7.8 g/dL (13.5-17.5); LYMPHOCYTES # (AUTO) 0.8 K/uL (0.8-4.8); LYMPHOCYTES % (AUTO) 17.7 % (20.0-44.0); MEAN CORPUSCULAR HGB CONC 31 g/dl (31.0-36.0); MEAN CORPUSCULAR VOLUME 90 fL (80-96); MONOCYTES # (AUTO) 0.5 K/uL (0.1-1.30); NEUTROPHILS # (AUTO) 2.9 K/uL (1.8-8.9); PLATELET COUNT (AUTO) 415 K/uL (150-450); RED BLOOD CELL COUNT(AUTO) 2.82 MIL/uL (4.5-6.0); WHITE BLOOD COUNT (AUTO) 4.7 K/uL (4.3-11.0)
[2021-12-27] MEDS: ENOXAPARIN SODIUM 80 MG/0.8 ML DISP.SYRIN SQ SCH ×2 (08:52→20:38)
[2021-12-27] MEDS: VANCOMYCIN HCL 0.75 GM in IV D5W 250 ML IV SCH ×2 (08:53→20:36)
[2021-12-27] MEDS: METOPROLOL TARTRATE 25 MG TABLET PO SCH ×3 (08:53→16:38)
[2021-12-27] MEDS: DOCUSATE SODIUM 100 MG CAPSULE PO SCH (08:53)
[2021-12-27] MEDS: MULTIVIT W/MINERALS 1 TAB TABLET PO SCH (08:53)
[2021-12-27] MEDS: ZINC SULFATE 220 MG CAPSULE PO SCH (08:53)
[2021-12-27 09:06] LABS: CALCIUM, SERUM 8.5 mg/dL (8.5-10.1); CREATININE 0.6 mg/dL (0.6-1.3); MAGNESIUM 1.9 mg/dL (1.8-2.4); PHOSPHORUS 3.2 mg/dL (2.5-4.9); POTASSIUM 3.9 mmol/L (3.5-5.1)
[2021-12-27] MEDS: HYDROGEL DRESSING 90 GM TUBE TP SCH (09:09)
[2021-12-27] MEDS: NEOMY SULF/BACITRAC ZN/POLY 15 GM TUBE TP SCH ×2 (09:11→16:38)
--- NOTE | 2021-12-27 18:39 | NUR ---
MS RN CLOSING NOTES PATIENT IN BED RESTING, STABLE ON ROOM AIR NO S/S OF RESPIRATORY DISTRESS OR DISCOMFORT. PATIENT IS A/O x3-4. IV ACCESS RD PICC RUNNING NS 75 ML/HR. INTACT AND PATENT. NO S/S OF CARDIAC DISTRESS OR DISCOMFORT. SKIN ISSUES: SACRAL WOUND DRESSING IN PLACE, NO S/S OF DRAINAGE OR INFECTION. USES URINAL AND BED FAGAN. ALL PRESCRIBED MEDICATION ADMINISTERED. SAFETY MEASURES MAINTAINED: BED IN LOWEST POSITION AND LOCKED, SIDE RAILS UP x2, CALL LIGHT WITHIN REACH, BED ALARM ON, HOB ELEVATED. WILL ENDORSE TO NEXT SHIFT ANY FRANCIS.
--- NOTE | 2021-12-27 19:40 | NUR ---
MS RN OPENING NOTES RECEIVED PATIENT SLEEPING IN BED,ROSANNA WELL ON ROOM AIR,NO SIGN SOB/DISTRESS NOTED IV ACCESS RD PICC RUNNING NS 75 ML/HR. INTACT AND PATENT.SAFETY MEASURES IN PLACE: BED IN LOWEST POSITION AND LOCKED, SIDE RAILS UP x2, CALL LIGHT WITHIN REACH,WILL CONTINUE TO MONITOR.
[2021-12-27 20:31] VITALS: BP 96/56
--- NOTE | 2021-12-27 20:37 | NUR ---
RN NOTES. PT COMPLAINED OF PAIN BLL 710.PRN NORCO 5/325 WAS GIVEN.
[2021-12-27] MEDS: SENNOSIDES 8.6 MG TABLET PO SCH (21:19)
[2021-12-28] VITALS (8 sets, daily range): BP systolic 105–125; BP diastolic 69–90
[2021-12-28] MEDS ORDERED: MIDAZOLAM HCL 2 MG/2ML VIAL ONE (06:44)
[2021-12-28] MEDS ORDERED: FENTANYL PF 250MCG/5ML AMPUL ONE (06:44)
[2021-12-28] MEDS ORDERED: FAMOTIDINE/PF INJ 20 MG/2 ML VIAL IV ONE (06:45)
[2021-12-28] MEDS ORDERED: HYDROMORPHONE INJ 2 MG/ML DISP.SYRIN ONE (06:45)
[2021-12-28 06:48] LABS: BASOPHILS % (AUTO) 0.3 % (0.0-2.0); EOSINOPHILS % (AUTO) 7.4 % (0.0-6.0); HEMATOCRIT 24 % (39-51); HEMOGLOBIN 7.7 g/dL (13.5-17.5); LYMPHOCYTES # (AUTO) 1.2 K/uL (0.8-4.8); LYMPHOCYTES % (AUTO) 24.2 % (20.0-44.0); MEAN CORPUSCULAR HGB CONC 32 g/dl (31.0-36.0); MEAN CORPUSCULAR VOLUME 86 fL (80-96); MONOCYTES # (AUTO) 0.5 K/uL (0.1-1.30); MONOCYTES % (AUTO) 9.6 % (2.0-12.0); NEUTROPHILS # (AUTO) 2.9 K/uL (1.8-8.9); NEUTROPHILS % (AUTO) 58.5 % (43.0-81.0); PLATELET COUNT (AUTO) 386 K/uL (150-450); RED BLOOD CELL COUNT(AUTO) 2.83 MIL/uL (4.5-6.0)
[2021-12-28] MEDS ORDERED: ANESTHESIA TRAY IN PYXIS 1 EA TRAY MC ONE (06:54)
--- NOTE | 2021-12-28 06:54 | NUR ---
MS RN CLOSING NOTES PATIENT IN BED RESTING, STABLE ON ROOM AIR NO S/S OF RESPIRATORY DISTRESS OR DISCOMFORT. PATIENT IS A/O x3-4. IV ACCESS RD PICC RUNNING NS 75 ML/HR. INTACT AND PATENT.ALL DUE MEDS GIVEN ORDER. SAFETY MEASURES MAINTAINED: BED IN LOWEST POSITION AND LOCKED, SIDE RAILS UP x2, CALL LIGHT WITHIN REACH, WILL ENDORSE TO NEXT SHIFT ANY FRANCIS.
[2021-12-28] MEDS ORDERED: LIDOCAINE 1% INJ 50 ML MDV IJ ONE (06:55)
[2021-12-28 07:02] LABS: CALCIUM, SERUM 8.5 mg/dL (8.5-10.1); CREATININE 0.8 mg/dL (0.6-1.3); MAGNESIUM 1.9 mg/dL (1.8-2.4); PHOSPHORUS 3.3 mg/dL (2.5-4.9); POTASSIUM 4.1 mmol/L (3.5-5.1)
--- NOTE | 2021-12-28 07:07 | NUR ---
RN OPENING NOTES PATIENT LEFT FOR SURGERY @0654, UNABLE TO SEE PATIENT BEFORE BEING TRANSPORTED FOR SURGERY.
[2021-12-28] MEDS ORDERED: BUPIVACAINE MPF 0.5% W/EPI INJ 30 ML VIAL ONE (07:38)
--- NOTE | 2021-12-28 08:47 | NUR ---
CARTON STAMPER NOTES PT PAR SCORE =10
--- NOTE | 2021-12-28 08:47 | NUR ---
MEDICAL INTERN NOTES PT RECEIVED IN PACU, S/P I&D OF INFECTED RIGHT THIGH WOUND, PT IS DRAWZY , FOLLOWS SIMPLE COMMAND, ABLE TO TAKE DEEP BREATH , ON FACE MASK AT 10 L , O2 SAT WNL, DRESSING TO RIGHT THIGH IS CLEAN , DRY AND INTACT, VSS STABLE. SKIN WARM TO TOUCH, NO COMPLICATION NOTED AT THIS TIME, CONTINUE TO MONITOR.
[2021-12-28] MEDS: ENOXAPARIN SODIUM 80 MG/0.8 ML DISP.SYRIN SQ SCH ×2 (09:00→21:14)
--- NOTE | 2021-12-28 09:00 | NUR ---
RN NOTES PT IS ALERT, STATED WANT TO GO BACK TO THE FLOOR, DRESSING TO RIGHT THIGH , CLEAN,DRY AND INTACT, SENSATION TO UPPER AND LOWER EXTREMITIES , CAPILLARY REFILL , COLOR , RADIAL PULSES, BRACHIAL PULSES WNL, NO DISTESS NOTED, VSS STABLE , CONTINUE TO MONITOR.
--- NOTE | 2021-12-28 09:15 | NUR ---
RN NOTES PT A/Ox3-4, IV SITE TO L UPPER ARM CLEAN, DRY AND INTACT, VSS STABLE, NO DISTESS NOTED, CONTINUE TO MONITOR.
--- NOTE | 2021-12-28 09:45 | NUR ---
LOBBY ATTENDANT NOTES VSS STABLE ,DRESSING TO RIGHT THIGH CLEAN, DRY AND INTACT, NO COMPLICATION NOTED, PT A/Ox4, STATED THAT HE IS HUNGARY AND WANTS TO EAT , PT BACK TO ROOM 311 , IN STABLE CONDITION, REPORT GIVEN TO JOSE DEL VALLE FOR CONTINUITY OF CARE
--- NOTE | 2021-12-28 09:45 | NUR ---
PIECER NOTE PT'S PAR =14
--- NOTE | 2021-12-28 09:58 | NUR ---
RN NOTES PATIENT RETURNED TO UNIT ACCOMPANIED BY THREE OR STAFF. PATIENT ALERT AND ORIENTED, ON 2 L OF O2 NO S/S OF RESPIRATORY DISTRESS. V/S STABLE, DRESSING ON R THIGH IN PLACE AND NO DRAINAGE OR BLEEDING NOTED. WILL CONTINUE TO MONITOR.
[2021-12-28] MEDS: ZINC SULFATE 220 MG CAPSULE PO SCH (10:23)
[2021-12-28] MEDS: DOCUSATE SODIUM 100 MG CAPSULE PO SCH (10:23)
[2021-12-28] MEDS: MULTIVIT W/MINERALS 1 TAB TABLET PO SCH (10:23)
[2021-12-28] MEDS: METOPROLOL TARTRATE 25 MG TABLET PO SCH ×3 (10:23→17:00)
[2021-12-28] MEDS: NEOMY SULF/BACITRAC ZN/POLY 15 GM TUBE TP SCH ×2 (10:24→17:39)
[2021-12-28] MEDS: HYDROCODONE/APAP 5/325MG TABLET PO PRN (10:24)
[2021-12-28] MEDS: HYDROGEL DRESSING 90 GM TUBE TP SCH (10:24)
[2021-12-28] MEDS: IV NS 0.9% 1,000 ML IV PRN (14:03)
[2021-12-28] MEDS: SENNOSIDES 8.6 MG TABLET PO SCH (21:15)
[2021-12-29] MEDS: IV NS 0.9% 1,000 ML IV PRN ×2 (03:36→18:01)
--- NOTE | 2021-12-29 06:15 | NUR ---
MS RN CLOSING NOTES PATIENT IN BED AAOX3 ON ROOM AIR NO SIGN SOB/DISTRESS NOTED. IV ACCESS RD PICC RUNNING NS 75 ML/HR. INTACT AND PATENT.DUE MEDS GIVEN ORDER.ALL NEEDS ATTENDED,KEPT PT CLEANED AND DRY AT ALL TIME SAFETY MEASURES MAINTAINED: BED IN LOWEST POSITION AND LOCKED, SIDE RAILS UP x2, CALL LIGHT WITHIN REACH, WILL ENDORSE TO NEXT SHIFT.
[2021-12-29 06:45] LABS: BASOPHILS # (AUTO) 0.1 K/uL (0.0-0.2); BASOPHILS % (AUTO) 0.7 % (0.0-2.0); EOSINOPHILS % (AUTO) 3.9 % (0.0-6.0); HEMATOCRIT 24 % (39-51); HEMOGLOBIN 7.6 g/dL (13.5-17.5); LYMPHOCYTES % (AUTO) 15.3 % (20.0-44.0); MEAN CORPUSCULAR HGB CONC 32 g/dl (31.0-36.0); MEAN CORPUSCULAR VOLUME 87 fL (80-96); MONOCYTES # (AUTO) 0.6 K/uL (0.1-1.30); MONOCYTES % (AUTO) 8.7 % (2.0-12.0); NEUTROPHILS # (AUTO) 4.8 K/uL (1.8-8.9); NEUTROPHILS % (AUTO) 71.4 % (43.0-81.0); PLATELET COUNT (AUTO) 392 K/uL (150-450); RED BLOOD CELL COUNT(AUTO) 2.79 MIL/uL (4.5-6.0); WHITE BLOOD COUNT (AUTO) 6.7 K/uL (4.3-11.0)
[2021-12-29 07:00] LABS: CALCIUM, SERUM 8.1 mg/dL (8.5-10.1); CREATININE 0.9 mg/dL (0.6-1.3); MAGNESIUM 1.9 mg/dL (1.8-2.4); PHOSPHORUS 2.8 mg/dL (2.5-4.9); POTASSIUM 3.8 mmol/L (3.5-5.1)
--- NOTE | 2021-12-29 07:25 | NUR ---
MS RN OPENING NOTES RECEIVED PATIENT AWAKE IN BED. A/O X3. BREATHING EVEN AND UNLABORED ON 2L OF O2 VIA NC. DENIES PAIN AT THIS TIME. RD PICC RUNNING NS @ 75 ML/HR WITH NO S/SX OF INFILTRATION NOTED. RIGHT THIGH DRESSING INTACT WITH MINIMAL DRAINAGE NOTED. TO BE SEEN BY WOUND NURSE OR DR BARLOW FOR DRESSING CHANGE. SAFETY MEASURES IN PLACE. WILL CONTINUE TO MONITOR
[2021-12-29] MEDS: ZINC SULFATE 220 MG CAPSULE PO SCH (09:00)
[2021-12-29] MEDS: METOPROLOL TARTRATE 25 MG TABLET PO SCH ×3 (09:00→16:13)
[2021-12-29] MEDS: DOCUSATE SODIUM 100 MG CAPSULE PO SCH (09:00)
[2021-12-29] MEDS: ENOXAPARIN SODIUM 80 MG/0.8 ML DISP.SYRIN SQ SCH ×2 (09:01→20:47)
[2021-12-29] MEDS: MULTIVIT W/MINERALS 1 TAB TABLET PO SCH (09:01)
[2021-12-29] MEDS: NEOMY SULF/BACITRAC ZN/POLY 15 GM TUBE TP SCH ×2 (09:02→16:19)
[2021-12-29] MEDS: HYDROGEL DRESSING 90 GM TUBE TP SCH (09:02)
[2021-12-29] MEDS: HYDROCODONE/APAP 5/325MG TABLET PO PRN ×2 (09:15→21:03)
[2021-12-29] MEDS: VANCOMYCIN HCL 0.75 GM in IV D5W 250 ML IV SCH (09:30)
--- NOTE | 2021-12-29 10:34 | NUR ---
WOUND CARE CONSULT: PT SEEN FOR RT THIGH SURGICAL DRESSING WHICH IS DRY AND INTACT. PT SEEN WITH PLASTIC SURGERY P.A. DEFER TO SURGICAL TEAMS CURRENTLY ON CASE.
--- NOTE | 2021-12-29 18:49 | NUR ---
MS RN CLOSING NOTES PATIENT RESTING IN BED. ON 2L OF O2 VIA NC, TOLERATING WELL WITH BREATHING EVEN AND UNLABORED. RD PICC RUNNING NS @ 75 ML/HR, TOLERATING WELL. SEEN BY WOUND CARE NURSE AND PLASTIC SURGERY N.P TODAY FOR WOUND CONSULTATION. F/U NEEDED TOMORROW FOR DRESSING CHANGE. ALL MEDICATIONS GIVEN AND NEEDS MET. SAFETY MEASURES IN PLACE. WILL ENDORSE TO THE SPORTS COORDINATOR NURSE FOR FRANCIS
--- NOTE | 2021-12-29 19:00 | NUR ---
RN opening notes Pt is sitting in bed comfortably watching TV. Pt is alert and orientedX4. On 2 L NC. No SOB. No S/S of distress noted. RD PICC is clean, intact and infuising well Ns@ 75 ml/hr. Dressing on R thigh is clean, intact and dry. Wound care consult tomorrow per am nurse. Safety precautions is maintained. Bed at low position, brakes locked, side rails upX3, hob elevated, bed alarm is on and call light is within reach. Will continue to monitor.
[2021-12-29 20:00] VITALS: BP 96/69
--- NOTE | 2021-12-29 21:03 | NUR ---
RN notes Pt is complaining of pain on R thigh and requesting pain med. administered norco5/1 tab/po/prn as ordered for pain. VS is stable. Will continue to monitor.
[2021-12-29] MEDS: SENNOSIDES 8.6 MG TABLET PO SCH (21:05)
--- NOTE | 2021-12-29 21:05 | NUR ---
RN notes Held sennokot. Pt refused sennokot. Pt stated " I poop two times. Will continue to monitor.
[2021-12-30] VITALS: BP 114/59
--- NOTE | 2021-12-30 04:00 | NUR ---
RN notes Pt refuses wound care (sacrum). explained risks and benefits. Pt keep refusing. Offered several times. Pt states "after my breakfast." will continue to monitor.
--- NOTE | 2021-12-30 05:00 | NUR ---
Rn notes Pt refuses to be clean and checked. explained risks and benefits. Pt states "I don't want anything right now. I will let you know when I pee." Primary nurse and IMPREGNATING TANK OPERATOR offered several times.
--- NOTE | 2021-12-30 06:32 | NUR ---
RN closing notes Pt is resting in bed comfortably. Pt is alert and orientedX4. On 2 L NC. No SOB. No S/S of distress noted. RD PICC is clean, intact and infuising well Ns@ 75 ml/hr. VS is stable. Dressing on R thigh is clean, intact and dry. Safety precautions is maintained. Bed at low position, brakes locked, side rails upX3, hob elevated, bed alarm is on and call light is within reach. Will endorse to am nurse for FRANCIS.
[2021-12-30 06:45] LABS: BASOPHILS % (AUTO) 0.7 % (0.0-2.0); EOSINOPHILS % (AUTO) 5.3 % (0.0-6.0); HEMATOCRIT 23 % (39-51); HEMOGLOBIN 7.3 g/dL (13.5-17.5); LYMPHOCYTES # (AUTO) 0.9 K/uL (0.8-4.8); LYMPHOCYTES % (AUTO) 17.7 % (20.0-44.0); MEAN CORPUSCULAR HGB CONC 32 g/dl (31.0-36.0); MEAN CORPUSCULAR VOLUME 89 fL (80-96); MONOCYTES # (AUTO) 0.7 K/uL (0.1-1.30); MONOCYTES % (AUTO) 13.8 % (2.0-12.0); NEUTROPHILS # (AUTO) 3.2 K/uL (1.8-8.9); NEUTROPHILS % (AUTO) 62.5 % (43.0-81.0); PLATELET COUNT (AUTO) 338 K/uL (150-450); RED BLOOD CELL COUNT(AUTO) 2.59 MIL/uL (4.5-6.0); WHITE BLOOD COUNT (AUTO) 5.2 K/uL (4.3-11.0)
[2021-12-30 07:01] LABS: CALCIUM, SERUM 8.2 mg/dL (8.5-10.1); CREATININE 0.6 mg/dL (0.6-1.3); MAGNESIUM 1.8 mg/dL (1.8-2.4); PHOSPHORUS 2.8 mg/dL (2.5-4.9); POTASSIUM 4.1 mmol/L (3.5-5.1)
--- NOTE | 2021-12-30 07:30 | NUR ---
RN MS NOTES PT IN BED, AWAKE, ALERT AND ORIENTED, NO COMPLAINT OF PAIN AT THIS TIME, RESPIRATIONS NORMAL AND NON LABORED, IV FLUIDS INFUSING WELL, EATING BREAKFAST, RIGHT THIGH DRESSING INTACT WITH SOME DRAINAGE, CALL LIGHT WITHIN REACH, KEPT COMFORTABLE.
[2021-12-30 08:00] VITALS: BP 114/65
[2021-12-30] MEDS: IV NS 0.9% 1,000 ML IV PRN (08:22)
[2021-12-30] MEDS: MULTIVIT W/MINERALS 1 TAB TABLET PO SCH (08:22)
[2021-12-30] MEDS: VANCOMYCIN HCL 0.75 GM in IV D5W 250 ML IV SCH (08:22)
[2021-12-30] MEDS: DOCUSATE SODIUM 100 MG CAPSULE PO SCH ×2 (08:22→08:57)
[2021-12-30] MEDS: ZINC SULFATE 220 MG CAPSULE PO SCH (08:22)
--- NOTE | 2021-12-30 08:24 | NUR ---
WOUND CARE CONSULT: PT ANGRY AND SARCASTIC WHEN DISCUSSING DRESSING CHANGE FOR RT THIGH. PT TO BE SEEN AT LATER TIME. SURGICAL TEAM ON CASE.
[2021-12-30] MEDS: HYDROCODONE/APAP 5/325MG TABLET PO PRN ×2 (08:27→13:27)
[2021-12-30] MEDS: ENOXAPARIN SODIUM 80 MG/0.8 ML DISP.SYRIN SQ SCH ×2 (08:30→21:00)
[2021-12-30] MEDS: HYDROGEL DRESSING 90 GM TUBE TP SCH (08:32)
[2021-12-30] MEDS: NEOMY SULF/BACITRAC ZN/POLY 15 GM TUBE TP SCH ×2 (08:32→16:16)
[2021-12-30] MEDS: METOPROLOL TARTRATE 25 MG TABLET PO SCH ×3 (08:37→16:03)
[2021-12-30] MEDS: CEFEPIME 1 GM in IV D5W 50 ML IV SCH ×2 (14:35→20:46)
[2021-12-30 16:09] VITALS: BP 101/66
--- NOTE | 2021-12-30 18:19 | NUR ---
RN MS NOTES PT IN BED, AWAKE, ALERT AND ORIENTED, WATCHING TV, NO COMPLAINT, NOT IN DISTRESS, PT DOES NOT WANT TO BE BOTHERED AND GETS EASILY IRRITATED WHEN OFFERED CARE, DUE MEDS GIVEN ORDERED, RIGHT THIGH WOUND TREATMENT AND DRESSING CHANGE DONE BY DR. ALCANTAR, TOLERATED WELL, PAIN MEDS GIVEN ORDERED, NEEDS ATTENDED.
--- NOTE | 2021-12-30 19:20 | NUR ---
RN opening notes Pt is sitting in bed comfortably watching TV. Pt is alert and orientedX4. On 2 L NC. No SOB. No S/S of distress noted. RD PICC is clean, intact and infuising well Ns@ 75 ml/hr. Surgical Dressing on R thigh is clean, intact and dry. Safety precautions is maintained. Bed at low position, brakes locked, side rails upX3, hob elevated, bed alarm is on and call light is within reach. Will continue to monitor.
[2021-12-30 20:00] VITALS: BP 111/71
--- NOTE | 2021-12-30 20:58 | NUR ---
RN notes Informed and notified Dr. Chavez regarding lovenox scheduled tonight. also informed that Pt's is positive for DVT and H+H today is 7.3. No S/s of bleeding noted. Md ordered to hold. charge nurse is aware and informed. ordered carry out. Will continue to monitor.
[2021-12-30] MEDS: SENNOSIDES 8.6 MG TABLET PO SCH ×2 (21:07→21:10)
[2021-12-31] MEDS: IV NS 0.9% 1,000 ML IV PRN (02:03)
[2021-12-31] MEDS: CEFEPIME 1 GM in IV D5W 50 ML IV SCH ×2 (04:38→13:35)
--- NOTE | 2021-12-31 06:30 | NUR ---
RN closing notes Pt is resting in bed comfortably. Pt is alert and orientedX4. On 2 L NC. No SOB. No S/S of distress noted. RD PICC is clean, intact and infuising well Ns@ 75 ml/hr. VS is stable. Routine meds were given as ordered. Wound care provided as ordered. Dressing on R thigh is clean, intact and dry. Kept Pt clean, dry and comfortable. Safety precautions is maintained. Bed at low position, brakes locked, side rails upX3, hob elevated, bed alarm is on and call light is within reach. Will endorse to am nurse for FRANCIS.
[2021-12-31 06:57] LABS: BASOPHILS % (AUTO) 0.9 % (0.0-2.0); EOSINOPHILS % (AUTO) 5.9 % (0.0-6.0); HEMATOCRIT 23 % (39-51); HEMOGLOBIN 7.3 g/dL (13.5-17.5); LYMPHOCYTES # (AUTO) 0.7 K/uL (0.8-4.8); LYMPHOCYTES % (AUTO) 15.7 % (20.0-44.0); MEAN CORPUSCULAR HGB CONC 32 g/dl (31.0-36.0); MEAN CORPUSCULAR VOLUME 87 fL (80-96); MONOCYTES # (AUTO) 0.6 K/uL (0.1-1.30); MONOCYTES % (AUTO) 13.4 % (2.0-12.0); NEUTROPHILS # (AUTO) 2.9 K/uL (1.8-8.9); NEUTROPHILS % (AUTO) 64.1 % (43.0-81.0); PLATELET COUNT (AUTO) 352 K/uL (150-450); RED BLOOD CELL COUNT(AUTO) 2.61 MIL/uL (4.5-6.0); WHITE BLOOD COUNT (AUTO) 4.6 K/uL (4.3-11.0)
[2021-12-31 07:19] LABS: CALCIUM, SERUM 8.2 mg/dL (8.5-10.1); CREATININE 0.7 mg/dL (0.6-1.3); MAGNESIUM 1.8 mg/dL (1.8-2.4); PHOSPHORUS 3.3 mg/dL (2.5-4.9)
--- NOTE | 2021-12-31 07:38 | NUR ---
MS RN OPENING NOTES RECEIVED PATIENT AWAKE IN BED. PATIENT IS ALERT AND ORIENTED TIMES 4. NO PAIN NOTED. NO SOB NOTED . NO DISTRESS NOTED. ON O2 INHALATION VIA NASAL CANNULA AT 2 L/MIN TOLERATING WELL. IV ACCESS ON RD PICC LINE RUNNING WITH NS AT 75 ML/HR. ALL SAFETY MEASURES IN PLACE. BED LOCKED IN THE LOWEST POSITION. CALL LIGHT AND TABLE IN EASY REACH. SIDE RAILS UP TIMES 2. WILL CONTINUE TO MONITOR.
[2021-12-31] MEDS: VANCOMYCIN HCL 0.75 GM in IV D5W 250 ML IV SCH (08:33)
[2021-12-31] MEDS: MULTIVIT W/MINERALS 1 TAB TABLET PO SCH (08:46)
[2021-12-31] MEDS: ZINC SULFATE 220 MG CAPSULE PO SCH (08:46)
[2021-12-31] MEDS: DOCUSATE SODIUM 100 MG CAPSULE PO SCH (08:46)
[2021-12-31] MEDS: HYDROCODONE/APAP 5/325MG TABLET PO PRN ×2 (08:47→18:13)
[2021-12-31] MEDS: HYDROGEL DRESSING 90 GM TUBE TP SCH (08:50)
[2021-12-31] MEDS: METOPROLOL TARTRATE 25 MG TABLET PO SCH ×3 (09:00→16:59)
--- NOTE | 2021-12-31 09:19 | NUR ---
RN NOTES HELD METOPROLOL FOR UB=669/59 , P=115
--- NOTE | 2021-12-31 13:52 | NUR ---
RN NOTES HELD METROPROLOL FOR BP=98/61, P=115
[2021-12-31] MEDS: NEOMY SULF/BACITRAC ZN/POLY 15 GM TUBE TP SCH ×2 (14:02→17:00)
[2021-12-31] MEDS ORDERED: VANC750P13 IV (14:24)
[2021-12-31] MEDS ORDERED: Hydrogel Dressing TP (14:24)
[2021-12-31] MEDS ORDERED: CEFE1FRO IV (14:24)
[2021-12-31] MEDS ORDERED: ENOXAPARIN SODIUM 80 MG/0.8 ML DISP.SYRIN SQ SCH (14:30)
[2021-12-31 16:59] VITALS: BP 105/71
--- NOTE | 2021-12-31 18:00 | NUR ---
RN NOTES GAVE REPORT TO EBONY CALVERT)FROM [facility] [place] BY PHONE NUMBER [phone] AT 1800.
--- NOTE | 2021-12-31 18:52 | NUR ---
CORE MACHINE TENDER NOTES DISCHARGE PATIENT IN STABLE CONDITION. PAIN NOTED. NORCO GIVEN. ALL THE BELONGINGS ACCOUNTED AND SIGNED FOR. ALL THE DISCHARGE INSTRUCTIONS GIVEN TO EBONY DEL VALLE AT 4 SEASONS LONG-TERM . CHANGED DRESSINGS. TOOK PICTURE OF SACRUM AND RIGHT LEG WOUND. 2 EMT CAME AROUND 1820. STABLE VITAL SIGNS AND STABLE CONDITION FOR PATIENT . KEPT IV SITE FOR CONTINUATION OF THE IV ATB. ID BAND REMOVED. ALL NEEDS ATTENDED. ALL DUE MEDS GIVEN ORDERED.KEPT PATIENT CLEAN AND DRY. PATIENT LEFT HOSPITAL AT 1830 IN STABLE CONDITION. MD AND CHARGE NURSE AWARE OF THE DISCHARGE.
== END 2021-12-31 18:20 | DRG 907 ==
LOC: ER 14:02 → MED 19:38
PROVIDERS: ADMIT Nurse Practitioner Acute Care; ATTEND Nurse Practitioner Acute Care
PROC: 0HBRXZZ Excision of Toe Nail, External Approach (ICD-10-PCS; 2021-12-22)
PROC: 0K9Q0ZZ Drainage of Right Upper Leg Muscle, Open Approach (ICD-10-PCS; principal; 2021-12-28)
DX: T85.628A Displacement of other specified internal prosthetic devices, implants and grafts, initial encounter (principal); E43 Unspecified severe protein-calorie malnutrition; L89.153 Pressure ulcer of sacral region, stage 3; I82.403 Acute embolism and thrombosis of unspecified deep veins of lower extremity, bilateral; L02.415 Cutaneous abscess of right lower limb; M60.051 Infective myositis, right thigh; J44.9 Chronic obstructive pulmonary disease, unspecified; B95.62 Methicillin resistant Staphylococcus aureus infection as the cause of diseases classified elsewhere; Z98.890 Other specified postprocedural states; I11.0 Hypertensive heart disease with heart failure; I50.9 Heart failure, unspecified; Y82.8 Other medical devices associated with adverse incidents; Y92.89 Other specified places as the place of occurrence of the external cause; D64.9 Anemia, unspecified; E88.09 Other disorders of plasma-protein metabolism, not elsewhere classified; F03.90 Unspecified dementia, unspecified severity, without behavioral disturbance, psychotic disturbance, mood disturbance, and anxiety; M20.41 Other hammer toe(s) (acquired), right foot; N30.90 Cystitis, unspecified without hematuria; M20.42 Other hammer toe(s) (acquired), left foot; N21.0 Calculus in bladder; Z91.012 Allergy to eggs
CPT/HCPCS: 36415; 71045-TC; 74160-TC; 80048-TC; 80076-TC; 80202-TC; 82378; 82607-TC; 82728-TC; 82784; 83540-TC; 83605-TC; 83735-TC; 84100-TC; 84153-TC; 84154-TC; 84155; 84165; 84439-TC; 84443-TC; 84484-TC; 85025-TC; 85610-TC; 85730-TC; 86334; 87040-TC; 87070-TC; 87075-TC; 87081-TC; 87086-TC; 87186-TC; 93970-TC; 94799-TC; A6248; A6253; A6403; A6407; C9803; G0378; J0692; J1170; J1650; J2060; J2250; J2543; J3010; J3370; J3490; J7030; J7040; J7050; J7060; Q9967